=== PATIENT | male | born 1995 | race African-American/Black ===

== ENCOUNTER 2022-08-06 12:54 | Emergency (ER) | payer OTHER ==
[~2022-08-06] VITALS: Ht 167.6 cm; Wt 93.2 kg
[2022-08-06 13:00] VITALS: BP 153/91
[2022-08-06 13:09] LABS: COVID AG,FIA SOURCE NASAL SWAB
== END 2022-08-06 14:06 | disposition home or self-care (01) ==
LOC: EMS 12:54
DX: Z13.89 Encounter for screening for other disorder (principal); F17.210 Nicotine dependence, cigarettes, uncomplicated; Z20.822 Contact with and (suspected) exposure to COVID-19
CPT/HCPCS: 99283